=== PATIENT | female | born 1955 | race Hispanic/Latino ===

== ENCOUNTER 2018-07-19 13:13 | Outpatient (CLI) | payer BC ==
--- NOTE | 2018-07-19 18:32 | Magnetic Resonance Report ---
PROCEDURE: MR LUMBAR SPINE WO CON HISTORY: SYSTEMIC LUPUS FINDINGS: MRI of the lumbar spine was performed using sagittal T1, sagittal T2, sagittal recovery, axial T1 and axial T2-weighted images. The conus medullaris lies at the level of L1 and appears unremarkable. There is scoliosis, convex left at L3-L4 of approximately 30 degrees. There are endplate Schmorl's nodes at T11-T12, T12-L1 and L1-L2. At T12-L1 there is loss of disc T2 signal intensity. There is a small right paracentral disc protrusi on which does not result in canal stenosis or significant neural foraminal narrowing or nerve root im pingement. At L1-L2 there is a right paracentral inferiorly directed disc extrusion which effaces the anterior m argin of thecal sac but does not result in canal stenosis. This measures 0.6 cm AP, 1.2 cm transverse and extends for 1.2 cm long wire is in the body. There is mild bilateral neural foraminal narrowing without nerve root impingement. At L2-L3 there are fatty endplate degenerative changes. There is a right paracentral disc protrusion which mildly effaces the anterior margin of the thecal sac but does not result in canal stenosis. The re is mild bilateral neural foraminal narrowing without nerve root impingement. There is mild facet h ypertrophy at this level. At L3-L4 there is a posterior disc bulge which, with ligamentum flavum and facet hypertrophy ,results in mild canal stenosis. There is mild to moderate right and mild left foraminal narrowing without ne rve root impingement. At L4-L5 is 0.5 cm anterolisthesis of L4 on L5. There is is a posterior disc bulge which, with ligame ntum flavum and facet hypertrophy, results in mild canal stenosis. There is mild to moderate right an d mild left foraminal narrowing without nerve root impingement. At L5-S1 there is loss of disc T2 signal intensity. There is mild bilateral foraminal narrowing witho ut nerve root impingement. IMPRESSION: Scoliosis Right paracentral inferiorly disc directed disc extrusion at L1-L2 Grade 1 degenerative anterolisthesis of L4 on L5 Mild canal stenosis at L3-L4 and L4-L5 This document is electronically signed by Jb Bahena MD., July 19 2018 06:30:18 PM ET
== END 2018-07-19 13:14 | disposition home or self-care (01) ==
LOC: MRI 13:13
DX: M51.26 Other intervertebral disc displacement, lumbar region (principal); M43.16 Spondylolisthesis, lumbar region; M48.061 Spinal stenosis, lumbar region without neurogenic claudication; M32.9 Systemic lupus erythematosus, unspecified
CPT/HCPCS: 72148

== ENCOUNTER 2019-04-11 12:47 | Outpatient (CLI) | payer BC ==
[2019-04-11 13:08] LABS: Hematocrit 40.1 % (30.3-42.9); Hemoglobin 13.7 gm/dl (10.1-14.3); Mean Corpuscular HGB Conc 34 % (30-34); Mean Corpuscular Volume 93 fl (79-97); Platelet Count 248 K/mm3 (140-440); Red Blood Count 4.33 M/mm3 (3.65-5.03); Red Cell Distribution Width 13.3 % (13.2-15.2)
[2019-04-11 13:26] LABS: Mucus,Urine FEW /HPF; RBC,Urine < 1.0 /HPF (0.0-6.0)
[2019-04-11 13:29] LABS: Color,Urine Yellow (Yellow)
[2019-04-11 13:31] LABS: Blood,Urine Trace (Negative)
[2019-04-11 13:32] LABS: Bilirubin,Urine Negative (Negative); Urobilinogen,Urine < 2.0 mg/dL (<2.0); WBC,Urine < 1.0 /HPF (0.0-6.0)
[2019-04-11 13:33] LABS: Alanine Aminotransferase 14 units/L (7-56); Albumin 4.1 g/dL (3.9-5); BUN/Creatinine Ratio 20; Blood Urea Nitrogen 14 mg/dL (7-17); Calcium 9.3 mg/dL (8.4-10.2); Hemolysis Index 3
[2019-04-11 13:42] LABS: Erythrocyte Sedimentation Rate 5 mm/Hr (0-20)
--- NOTE | 2019-04-11 14:21 | XRay Report ---
BILATERAL FEET, 2 VIEWS INDICATION: PRIMARY OSTEOARTHRITIS INVOLVING MULTIPLE JOINTS. COMPARISON: None. IMPRESSION: Normal bone mineralization. Within the left foot, no significant degenerative changes o r joint pathology is identified. No fracture or bone lesion. A small left plantar spur is identified. Within the right foot, there is moderate joint space narrowing at the first metatarsophalangeal join t. The remaining joint spaces are unremarkable. A large right plantar spur is identified. Small accessory navicular bones are identified in both feet, right greater than left. The soft tissues are unremarkable. Signer Name: Sonido Stewart Jr, MD Signed: 04/11/2019 2:17 PM Workstation Name: [id number]
== END 2019-04-11 12:48 | disposition home or self-care (01) ==
LOC: XRAY 12:47
PROVIDERS: ATTEND Internal Medicine Rheumatology
DX: M32.9 Systemic lupus erythematosus, unspecified (principal); M19.90 Unspecified osteoarthritis, unspecified site; Z79.899 Other long term (current) drug therapy
CPT/HCPCS: 36415; 80053; 81001; 85027; 85652; 86140; 86160

== ENCOUNTER 2019-07-15 10:29 | Outpatient (CLI) | payer BC ==
[2019-07-15 11:14] LABS: Hematocrit 41.5 % (30.3-42.9); Hemoglobin 14.4 gm/dl (10.1-14.3); Mean Corpuscular HGB Conc 35 % (30-34); Mean Corpuscular Volume 91 fl (79-97); Platelet Count 269 K/mm3 (140-440); Red Blood Count 4.57 M/mm3 (3.65-5.03); Red Cell Distribution Width 13.1 % (13.2-15.2)
[2019-07-15 11:20] LABS: Bacteria,Urine 1+ /HPF (Negative); Bilirubin,Urine NEG (Negative); Blood,Urine NEG (Negative); Color,Urine Amber (Yellow); Mucus,Urine 1+ /HPF; Protein,Urine <15 mg/dL mg/dL (Negative); Urobilinogen,Urine < 2.0 mg/dL (<2.0)
[2019-07-15 11:30] LABS: Erythrocyte Sedimentation Rate 6 mm/Hr (0-20)
[2019-07-15 11:36] LABS: Alanine Aminotransferase 12 units/L (7-56); Albumin 4.3 g/dL (3.9-5); BUN/Creatinine Ratio 16; Blood Urea Nitrogen 11 mg/dL (7-17); Calcium 9.5 mg/dL (8.4-10.2); Hemolysis Index 4
[2019-07-15 11:37] LABS: Creatinine,Urine 258.2 mg/dL (0.1-20.0); Protein/Creatinine Ratio,Urine 0.09
== END 2019-07-15 10:30 | disposition home or self-care (01) ==
LOC: MAMMO 10:29
PROVIDERS: ATTEND Obstetrics & Gynecology
DX: Z12.31 Encounter for screening mammogram for malignant neoplasm of breast (principal); M15.0 Primary generalized (osteo)arthritis; M62.838 Other muscle spasm; Z99.89 Dependence on other enabling machines and devices
CPT/HCPCS: 36415; 77067; 80053; 81001; 82570; 83735; 84156; 85027; 85652; 86140; 86160

== ENCOUNTER 2019-07-26 11:15 | Outpatient (CLI) | payer BC ==
[2019-07-28 13:41] LABS: Creatinine,Urine 147.8 mg/dL (0.1-20.0)
[2019-07-28 13:43] LABS: Microalbumin/Creatinine Ratio 8.1 ug/mg
[2019-07-28 13:45] LABS: Creatinine,Urine 30.3 mg/dL (0.1-20.0)
== END 2019-07-26 11:16 | disposition home or self-care (01) ==
LOC: LAB 11:15
PROVIDERS: ATTEND Internal Medicine
DX: R80.9 Proteinuria, unspecified (principal)
CPT/HCPCS: 36415; 82043; 82565; 82570; 82575; 84156; 86334

== ENCOUNTER 2020-01-18 09:09 | Outpatient (CLI) | payer BC ==
--- NOTE | 2020-01-18 10:35 | Mammography Report ---
DEXA BONE DENSITY SCAN INDICATION: M85.852Other specified disorders of bone density and structure, l. COMPARISON: 01/15/2018 LUMBAR SPINE (L1-L4): Bone mineral density (BMD) is 0.990 g/cm2. T-score is -0.5 (standard deviations of Young Adult mean). Z-score is 1.1 (standard deviations of Age Matched mean). There is +1.4% change. LEFT FEMORAL NECK: Bone mineral density (BMD) is 0.611 g/cm2. T-score is -2.1 (standard deviations of Young Adult mean). Z-score is -0.7 (standard deviations of Age Matched mean). There is +0.8% change. IMPRESSION: 1. WHO Classification: Osteopenia. Fracture Risk: Increased. Signer Name: Adam Buckner MD Signed: 01/18/2020 10:31 AM Workstation Name: [id number]
== END 2020-01-18 09:10 | disposition home or self-care (01) ==
LOC: MAMMO 09:09
PROVIDERS: ATTEND Internal Medicine Rheumatology
DX: M85.852 Other specified disorders of bone density and structure, left thigh (principal)
CPT/HCPCS: 77080